=== PATIENT | female | born 1980 | race Caucasian/White ===

== ENCOUNTER 2020-10-12 15:04 | Outpatient (CLI) | payer OTHER, SELFPAY ==
--- NOTE | ~2020-10-12 | MM_ITS ---
EXAMINATION: MM screening kyra BI w tera HISTORY: Screening TECHNIQUE: Craniocaudal and mediolateral oblique 3-D tomosynthesis images were obtained and synthetic 2-D images were generated. CAD analysis was submitted and interpreted. COMPARISON: No prior mammogram is available for comparison at this institution. BREAST PARENCHYMAL COMPOSITION: There are scattered areas of fibroglandular density. FINDINGS: There is no evidence of suspicious mass, calcification, or architectural distortion to sugg est malignancy in either breast. There has been no suspicious interval change. IMPRESSION: 1. No mammographic evidence of malignancy. 2. Recommend routine screening mammography in one year. BI-RADS Category 1: Negative Reviewed, dictated and finalized at location A.
== END 2020-10-12 15:05 | disposition home or self-care (01) ==
LOC: ANHIMG 15:08
PROVIDERS: PCP Family Medicine; Visit Provider Obstetrics & Gynecology
DX: Z12.31 Encounter for screening mammogram for malignant neoplasm of breast (principal)
CPT/HCPCS: 77063; 77067

== ENCOUNTER 2020-10-16 15:32 | Outpatient (CLI) | payer OTHER, SELFPAY | END 2020-10-16 15:33 | disposition home or self-care (01) | LOC: ANHCOVIDVC 15:32 | PROVIDERS: PCP Family Medicine | DX: Z23 Encounter for immunization (principal) | CPT/HCPCS: 0001A; 91300 ==

== ENCOUNTER 2020-11-06 15:44 | Outpatient (CLI) | payer OTHER, SELFPAY | END 2020-11-06 15:45 | disposition home or self-care (01) | LOC: ANHCOVIDVC 15:44 | PROVIDERS: PCP Family Medicine | DX: Z23 Encounter for immunization (principal) | CPT/HCPCS: 0002A; 91300 ==

== ENCOUNTER 2023-06-30 12:01 | Outpatient (CLI) | payer BC, SELFPAY ==
--- NOTE | 2023-06-30 14:54 | ECG_ITS ---
Measurements Intervals [place] Rate: 84 P: 54 ID: 162 QRS: 37 QRSD: 82 T: 52 QT: 337 QTc: 399 Interpretive Statements SINUS RHYTHM NO PREVIOUS ECG AVAILABLE FOR COMPARISON Electronically Signed On 06-30-2023 16:42:54 YARN WRAPPER by Steve Carranza M.D.
== END 2023-06-30 12:02 | disposition home or self-care (01) ==
PROVIDERS: PCP Physician Assistant; Visit Provider Obstetrics & Gynecology
DX: Z01.818 Encounter for other preprocedural examination (principal); E78.00 Pure hypercholesterolemia, unspecified
CPT/HCPCS: 93005

== ENCOUNTER 2023-07-12 01:27 | Day surgery (SDC) | payer BC, SELFPAY ==
[2023-06-28 14:40] VITALS: BMI 24.4
--- NOTE | 2023-06-28 14:58 | PC.NURSE ---
Report to the Outpatient Waiting Room, entrance under the green pavilion located off [facility], at 1000 on 07-12-23. Planned Procedure Time: 1200. Time changes happen often and if your time is changed the preop area will call you the afternoon before. - You and your visitor will be asked to self-screen and do not enter if you have any COVID symptoms. - A mask is optional within the hospital at this time. Patients may have clear liquids (water, carbonated beverages, clear teas, apple juice) until 3 hours prior to surgery with a maximum of 20 ounces. 0900 - No food from midnight until time of surgery - Infants may have breast milk until 4 hours before surgery, infant formula 6 hours prior to surgery. - Children will be allowed to drink immediately following surgery. If applicable, please bring a bottle or sippy cup to assist with drinking. Juice, water, soda, and popsicles are readily available. For infants on formula, please bring formula the day of surgery. Pacifiers are allowed. Take the following medications with a SIP of water the morning of surgery: propanolol DO NOT STOP ANY OF YOUR OTHER PRESCRIPTION MEDICATIONS PRIOR TO SURGERY ?EXCEPT THE FOLLOWING Medications to discontinue per physician: vitamins and supplements Date to take last dose: 07-09-23 Please no make-up, nail israeli, hairspray, perfume, deodorant, or body powder the day of surgery. No jewelry (including any body piercings) or valuables the day of surgery, leave them at home. Please take a shower or bath the night before, or the morning of, surgery with an antibacterial soap. Wear comfortable, loose fitting clothing. Children are encouraged to wear pajamas. - Jewelry must be removed prior to entering the operating room. Rings and piercings that are not removed may be cut off. - The hospital will not accept responsibility for valuables. - Please leave all valuables, including medications, at home the day of surgery. If you are going home after surgery, a licensed trencher driver must drive you home. - NO public transportation without another adult if you receive anesthesia. - We recommend that an adult stay with you for 24 hours following discharge. - We also recommend that you do not drive, make important decision, drink alcoholic beverages, or take any drugs that were not prescribed by your health care provider for at least 24 hours after your discharge time. For Pediatric surgeries, we recommend two adults accompany the child home. Follow any additional instructions given to you from your surgeon. If you or anyone in your household have experienced Covid symptoms in the past week, please notify your surgeon or the nurse liaison at the phone number below for possible testing. Telephone instructions given to Sayda Jordan and asked if any additional questions and then verbalized understanding. Patient advised to call surgeon office or pre surgery nurse liaison [phone] if any additional questions.
[2023-07-12] VITALS (13 sets, daily range): BP systolic 127–142; BP diastolic 76–92; PULSE 57–79; RESP 10–20; TEMP 36.5–37.2; O2SAT 94–100
[2023-07-12] MEDS: ACETAMINOPHEN 500 MG TABLET 1000 MG PO (10:37)
[2023-07-12] MEDS: LACTATED RINGERS 1,000 ML 30 ML IV CONT ×2 (10:55→12:59)
[2023-07-12] MEDS: KETOROLAC 15 MG/ML VIAL (*BKC) IV PUSH (10:57)
--- NOTE | 2023-07-12 11:37 | PM.IMHP ---
H&P: HPI History of Present Illness Date/Time: 07/12/23 11:37 Chief Complaint: Heavy periods Narrative: 42 y/o who has been using an extended cycle combined oral contraceptive. Her menses have become irregular and unpredictable and are heavy, with passage of clots. She does not desire future childbearing. Review of Systems Review of Systems: All systems reviewed & are unremarkable except as noted in HPI and below PMFSH Past Medical History Medical History Hyperlipidemia Social History Social History Smoking packs per day: 0.5 Smoking cigarettes per day: 10.0 Years smoked: 6 Smoking pack-years: 3.00 Smoking status: Former smoker Tobacco type: cigarettes Second hand tobacco smoke exposure: No Smoking end date: 07/03/03 Alcohol intake: current Alcohol use details: sometimes Substance use: never Substance use type: does not use Living arrangements: with family Spiritual care concerns: No Meds Home Medications and Allergies Home Medications Medication Instructions Recorded Confirmed Type L norgest/E estradiol-E estrad See Rx Instructions .Route .COMPLEX 06/28/23 07/12/23 History 0.15 mg-30 mcg (84)/10 mcg(7) tabs,3mos (Ashlyna) atorvastatin 10 mg tablet 10 mg PO HS 06/28/23 07/12/23 History magnesium 250 mg tablet 250 mg PO HS 06/28/23 07/12/23 History multivit with minerals-iron 18 1 tablet PO DAILY 06/28/23 07/12/23 History mg-folic ac 400 mcg-vit K 25 mcg tablet (Adults Multivitamin) propranolol 40 mg tablet 40 mg PO DAILY 06/28/23 07/12/23 History pseudoephedrine HCl 120 mg 120 mg PO DAILY 06/28/23 07/12/23 History tablet,extended release (Sudafed 12 Hour) vitamin B complex (B 1 tablet PO DAILY 06/28/23 07/12/23 History Complex-Vitamin B12 tablet) Allergies Allergy/AdvReac Type Severity Reaction Status Date / Time No Known Allergies Allergy Verified 06/28/23 14:20 Vital Signs Vital Signs - 24 hr 07/12/23 10:35 Temperature 37.2 C Pulse Rate 72 Respiratory Rate 20 Blood Pressure 131/88 Pulse Oximetry 100 Oxygen Delivery Room Air Exam Const: Orientation/consciousness: patient oriented x3 Other: Well-developed, well-nourished female in no acute distress. Neck: Thyroid: thyroid normal Lymphatic: no lymphadenopathy noted (in neck, axilla or inguinal nodes) Resp: Effort & Inspection: normal respiratory effort Auscultation: clear to auscultation bilaterally Cardio: Rate: regular rate Rhythm: regular rhythm Heart sounds: S1 normal heart sound present and S2 normal heart sound present GI: Other: ABD: Soft, nontender, nondistended. No guarding or rebound tenderness. No hepatosplenomegaly. : General: Yes no CVA tenderness Other: External genitalia: normal female hair distribution, without lesion. Urethral meatus: no lesion, non prolapsed. Bladder: no mass, nontender Vagina: well-estrogenized, without lesion or discharge. No cystocele or rectocele. Cervix: no lesion or discharge. Uterus: small, anteverted, freely mobile, nontender Adnexa: no mass or tenderness. Anus/perineum: no lesions, nontender Back/Spine/Pelvis: Back: no CVA tenderness Skin: General skin exam: normal color and no rashes or lesions noted Neuro: General: patient oriented x3 Extrem: Other: Extremities: nontender with no edema Psych: Mental Status: mental status grossly normal Affect: normal affect Assessment and Plan Assessment and plan (1) Menometrorrhagia: Code(s): N92.1 - Excessive and frequent menstruation with irregular cycle Status: Acute Assessment and Plan: A: Menometrorrhagia with desired sterility. P: We have discussed medical as well as surgical treatment options, and she prefers the latter. Specifically, I have offered her a laparoscopic bilateral tubal ligation, hysterosc
--- NOTE | 2023-07-12 11:58 | P.PNAN_ITS ---
Anes - Initial Pre Proc Eval Procedure: Operation Date: 07/12/23 12:00 Proposed Procedures p Laparoscopic Bilateral Tubal with Fallopian Rings - Vicente Lopez MD s Hysteroscopy Dilation and Curettage with Sonali Endometrial Ablation - Vicente Lopez MD Date/Time: 07/12/23 11:58 Surgeon: Vicente Lopez MD Pre Op Diagnosis: Desire Sterilization Excessive Irg Bleeding Patient Data Age: 42 Gender: F Height: 1.83 m Weight: 83.3 kg Last Vital Signs Temp 37.2 C 07/12/23 10:35 Pulse 72 07/12/23 10:35 Resp 20 07/12/23 10:35 BP 131/88 07/12/23 10:35 Pulse Ox 100 07/12/23 10:35 O2 Del Method Room Air 07/12/23 10:35 Allergies Allergy/AdvReac Type Severity Reaction Status Date / Time No Known Allergies Allergy Verified 06/28/23 14:20 Home Medications Medication Instructions Recorded Confirmed Type L norgest/E estradiol-E estrad See Rx Instructions .Route .COMPLEX 06/28/23 07/12/23 History 0.15 mg-30 mcg (84)/10 mcg(7) tabs,3mos (Ashlyna) atorvastatin 10 mg tablet 10 mg PO HS 06/28/23 07/12/23 History magnesium 250 mg tablet 250 mg PO HS 06/28/23 07/12/23 History multivit with minerals-iron 18 1 tablet PO DAILY 06/28/23 07/12/23 History mg-folic ac 400 mcg-vit K 25 mcg tablet (Adults Multivitamin) propranolol 40 mg tablet 40 mg PO DAILY 06/28/23 07/12/23 History pseudoephedrine HCl 120 mg 120 mg PO DAILY 06/28/23 07/12/23 History tablet,extended release (Sudafed 12 Hour) vitamin B complex (B 1 tablet PO DAILY 06/28/23 07/12/23 History Complex-Vitamin B12 tablet) Patient hx anesthesia problems: none Family hx anesthesia problems: none Results Review: All pre-operative results and documents have been reviewed as part of the pre-operative evaluation. PMFSH Past Medical History Medical History Hyperlipidemia Social History Social History Smoking packs per day: 0.5 Smoking cigarettes per day: 10.0 Years smoked: 6 Smoking pack-years: 3.00 Smoking status: Former smoker Tobacco type: cigarettes Second hand tobacco smoke exposure: No Smoking end date: 07/03/03 Alcohol intake: current Alcohol use details: sometimes Substance use: never Substance use type: does not use Living arrangements: with family Spiritual care concerns: No Anes - Eval Final PreProcedure Day of Procedure 07/12/23 11:58 Patient weight: normal Heart: regular rate and rhythm Lungs: clear to auscultation Airway: Mallampati scale class II Neurological: alert and oriented Last oral intake: >/= 8 hours ASA classification: II Emergent: no Anesthetic plan: proceed Anesthesia type and monitoring: general ETT and standard monitoring Results Review: All pre-operative results and documents have been reviewed as part of the pre- operative evaluation. Informed Consent: The patient's anesthetic plan and its attendant risks and benefits were discussed with the patient/family/POA. Questions were solicited and answers provided to the satisfaction of the patient/family/POA.
--- NOTE | 2023-07-12 11:58 | WPDHPUPDATE1 ---
History and Physical Update Update Date/Time: 07/12/23 11:58 History and Physical has been reviewed, including an updated exam of the patient. There are NO changes in the patient's condition. Risks, benefits, and alternatives have been discussed and questions answered. Patient agrees to proceed with procedure.
[2023-07-12] MEDS: LIDOCAINE HCL 1% LOCAL INJ 20 ML VIAL INFILTRATE (12:33)
--- NOTE | 2023-07-12 13:05 | P.OP_ITS ---
Procedure Note - Detailed Date of Procedure 07/12/23 Pre-op Diagnosis Menometrorrhagia Desired sterility Post-op Diagnosis Same Procedure Performed Laparoscopic bilateral tubal ligation with Falope rings Hysteroscopy Dilation and sharp curettage Endometrial ablation Surgeon Vicente Lopez MD Anesthesia General and Local (1% lidocaine) Findings On laparoscopy, normal-appearing uterus, tubes, ovaries, anterior and posterior cul de sac, bilateral round and uterosacral ligaments. RUQ anatomy unremarkable. Vermiform appendix not visible. On hysteroscopy, the endometrial cavity was unremarkable. Both tubal ostia were seen. The uterus sounded to a depth of 8 cm, with a cervical length of 3 cm, giving a subtracted uterine cavity length of 5 cm. Description of Procedure The patient was taken to the operating room where general endotracheal anesthesia was administered. She was prepared and draped in the usual sterile fashion in dorsal lithotomy position. The bladder was drained with a red rubber catheter. A sterile speculum was placed into the vagina. The anterior lip of the cervix was grasped with a single-tooth tenaculum. The acorn uterine manipulator was placed. The speculum was withdrawn. Gloves were changed and attention was turned the abdomen. An infraumbilical skin incision was made with a scalpel. The abdomen was tented and a 5mm bladeless trocar was advanced under direct laparoscopic visualization. Pneumoperitoneum was administered using carbon dioxide gas. A survey of the pelvis and abdomen revealed the findings noted above. A second skin incision was made in the midline above the symphysis pubis and an 8mm bladeless trocar was advanced under direct laparoscopic visualization. The fallopian tube on the left side was followed out to the fimbriated end for identification. It was then grasped in the midportion with the Falope ring applicator. The Falope ring was tented applied. A good loop of tube was noted to be distal to the ring. Hemostasis was excellent. The device was reloaded and the contralateral tube was similarly identified and ligated. An excellent application was noted here as well. A total of 4mL of 1% lidocaine was infiltrated into the serosa of the proximal tubes for postoperative anesth esia. The ports were withdrawn. The gas was allowed to escape. The skin incisions were reapproximated using interrupted subcuticular sutures of 4 0 Vicryl. Dermaflex was applied externally. Attention was redirected to the vagina, where the acorn uterine manipulator was withdrawn and the speculum reintroduced. Ten mL of 1% lidocaine was administered in a paracervical block. The cervix was then gently dilated using Hegar dilators until an 8 mm dilator could be passed. Hysteroscopy was performed using sterile saline as a distention medium. Findings are as noted above. Sharp curettage was then performed, and endometrial curettings were collected on a Telfa pad and passed off to be sent to pathology. Finally, the the Sonali device was advanced and endometrial ablation commenced without difficulty. The device was withdrawn and a second look was taken using the hysteroscope. Excellent coverage of the endometrial cavity was noted. The tenaculum was removed. Hemostasis was excel lent. Sponge, lap, needle and instrument counts were correct. The patient was awakened and taken to the recovery room in stable condition. I was present and scrubbed through the entire procedure. Implants Falope rings x 2 Estimated Blood Loss 10 Drains No Packing No Pathology Yes (Endometrial curettings) Complications None Condition Stable Disposition PACU
[2023-07-12] MEDS: fentaNYL CITRATE INJ (*CRX) 100 MCG/2 ML VIAL 25 MCG IV PUSH ×8 (13:11→13:44)
--- NOTE | 2023-07-12 13:26 | SUR.PHASEI ---
1325: Simple mask removed.
[2023-07-12] MEDS: HYDROmorphone HCL INJ (*CRX) 1 MG/ML SYR IV PUSH ×2 (15:28→16:00)
[2023-07-12] MEDS: diazePAM INJ (*CRX) 10 MG/2 ML SYRINGE 2.5 MG IV PUSH (15:28)
== END 2023-07-12 16:40 | disposition home or self-care (01) ==
PROVIDERS: PCP Physician Assistant; Visit Provider Obstetrics & Gynecology
PROC: (CPT 58671; principal; 2023-07-12 12:00)
PROC: 0U5B8ZZ Destruction of Endometrium, Via Natural or Artificial Opening Endoscopic (ICD-10-PCS; CPT 58563; 2023-07-12 12:00)
DX: N92.1 Excessive and frequent menstruation with irregular cycle (principal); Z30.2 Encounter for sterilization; E78.5 Hyperlipidemia, unspecified; Z87.891 Personal history of nicotine dependence
CPT/HCPCS: 58563; 58671; 88305; A4264; A9270; J0330; J1100; J1170; J1885; J2250; J2405; J2704; J3010; J3360; J7120

== ENCOUNTER 2023-10-02 07:32 | Outpatient (CLI) | payer OTHER, SELFPAY ==
--- NOTE | ~2023-10-02 | MM_ITS ---
EXAMINATION: MM screening kyra BI w tera HISTORY: Screening TECHNIQUE: Craniocaudal and mediolateral oblique 3-D tomosynthesis images were obtained and synthetic 2-D images were generated. CAD analysis was submitted and interpreted. COMPARISON: 10/12/2020 BREAST PARENCHYMAL COMPOSITION: Not dense: There are scattered areas of fibroglandular density. FINDINGS: There are new asymmetries centered in the upper outer quadrant of the right breast. The lef t breast is stable without evidence for malignancy. IMPRESSION: 1. New right breast asymmetries. 2. Additional mammographic views and possible breast ultrasound are recommended. BI-RADS Category 0: Incomplete: Needs additional imaging evaluation. Reviewed, dictated and finalized at location B. IMPRESSION: 1. New right breast asymmetries. 2. Additional mammographic views and possible breast ultrasound are recommended . BI-RADS Category 0: Incomplete: Needs additional imaging evaluation.
== END 2023-10-02 07:33 | disposition home or self-care (01) ==
LOC: ANHIMG 07:35
PROVIDERS: PCP Physician Assistant; Visit Provider Obstetrics & Gynecology
DX: Z12.31 Encounter for screening mammogram for malignant neoplasm of breast (principal); R92.8 Other abnormal and inconclusive findings on diagnostic imaging of breast
CPT/HCPCS: 77063; 77067

== ENCOUNTER 2023-11-09 10:47 | Outpatient (CLI) | payer OTHER, SELFPAY ==
--- NOTE | ~2023-11-09 | MMUS_ITS ---
EXAMINATION: MM diagnostic kyra RT w tera, US breast RT limited HISTORY: New right breast mammographic asymmetry is reported on in the upper outer quadrant right nahun ast on October 02, 2023 screening mammogram TECHNIQUE: Additional 3-D tomosynthesis images of the right breast were performed and synthetic 2-D i mages were generated. CAD analysis was submitted and interpreted. High resolution upper outer quadran t right breast ultrasound was performed. COMPARISON: October 02, 2023 bilateral screening mammogram FINDINGS: MAMMOGRAPHIC FINDINGS: No suspicious mass or architectural distortion, malignant calcification, skin thickening or retractio n or significant new or developing density is detected. ULTRASOUND: Well-circumscribed oval 2.2 x 4.6 x 4.7 mm benign-appearing relatively sonolucent lesion without inte rnal vascularity or posterior shadowing. No suspicious mass lesion or suspicious shadowing is detected. IMPRESSION: 1. No mammographic or sonographic evidence of malignancy 2. Routine annual mammographic screening is recommended BI-RADS Category 2: Benign finding(s). Reviewed, dictated and finalized at location B. IMPRESSION: 1. No mammographic or sonographic evidence of malignancy 2. Routine annual mammographic screening is recommended BI-RADS Category 2: Benign finding(s).
== END 2023-11-09 10:48 | disposition home or self-care (01) ==
PROVIDERS: PCP Physician Assistant; Visit Provider Obstetrics & Gynecology
DX: R92.8 Other abnormal and inconclusive findings on diagnostic imaging of breast (principal)
CPT/HCPCS: 76642; 77061; 77065; G0279

== ENCOUNTER 2025-02-21 08:16 | Outpatient (CLI) | payer OTHER, SELFPAY ==
--- NOTE | ~2025-02-21 | MM_ITS ---
EXAMINATION: MM screening kyra BI w tera HISTORY: Screening mammogram, family history of breast cancer in her mother. TECHNIQUE: Craniocaudal and mediolateral oblique 3-D tomosynthesis images were obtained and synthetic 2-D images were generated. CAD analysis was submitted and interpreted. COMPARISON: 10/02/2023, 10/12/2020 BREAST PARENCHYMAL COMPOSITION:Not Dense. There are scattered areas of fibroglandular density. FINDINGS: No suspicious mass, calcification, or architectural distortion are identified in either breast to suggest malignancy. There has been no suspicious interval change. IMPRESSION: No mammographic evidence of malignancy. Recommend routine screening mammography in one year. BI-RADS Category 1: Negative Reviewed, dictated and finalized at location .
--- OUTSIDE RECORDS SUMMARY | 2025-02-21 08:20 | XMS_ITS | Encounter Summary ---
Author Organization [facility] Address [address] [place] [address] Care Team Providers Care Patient Assessment Coordinator Name Role Phone Yari Pedraza PA-C Primary Care Provider +1- [phone] Encounter Details Date Type Department Care Team (Late st Contact Info) Description 01/02/2025 Results Follow-Up [address] [address] Yair Pedraza PA-C [address] [place] [address] THYROID STIM HORMONE TSH, THYROXINE, FREE (FT4), CBC W/DIFF AUTOMATED, Additional followed-up results: 4 Social History Tobacco Use Types Packs/Day Years Used Date Smoking Tobacco: Former Passive Smoke Exposure: Never Smokeless Tobacco: Never Comments:quit about 17 years ago Alcohol Use Standard Drinks/Week Comments Yes 2.7 (1 standard drink = 0.6 oz p ure alcohol) social PHQ-2 Answer Date Recorded Patient Health Questionnaire-2 Score 0 09/12/2024 Comments No Sex and Gender Information Value Date Recorded Sex Assigned at Female 12/02/2024 7:57 AM CDT Legal Sex Female 7:37 PM CDT Gender Identity Not on file Sexual Orientation Not on file documented as of this encounter Plan of Treatment Upcoming Encounters Date Type Department Care Team (Late st Contact Info) Description 06/17/2025 3:00 PM ROUGH ROUNDER MACHINE Office Visit [address] [address] Yari Pedraza PA-C [address] [place] [address] 07/09/2025 8:20 AM ROUGH ROUNDER MACHINE Office Visit [facility] Medical [facility] Multispecialty Care - [facility] [address] [facility] [place] [address] Caio Harris MD [facility] [facility] [address] [place] [address] documented as of this encounter Visit Diagnoses Not on filedocumented in this encounter Additional Health Concerns Assessment Noted Time PHQ-9 Depression Total Score: 0 05/13/20 24 2:15 PM ROUGH ROUNDER MACHINE documented as of this encounter Care Teams Patient Assessment Coordinator Relationship Specialty Start Date End Date Yari Pedraza PA-C [address] [place] [address] PCP - General PHYSICIAN PIPELINE DISPATCH OPERATOR 03/03/21 documented as of this encounter
--- OUTSIDE RECORDS SUMMARY | 2025-02-21 08:20 | XMS_ITS | Encounter Summary ---
Author Organization [facility] Address [address] [place] [address] Care Team Providers Care Switcher Name Role Phone Yari Pedraza PA-C Primary Care Provider +1- [phone] Encounter Details Date Type Department Care Team (Late st Contact Info) Description 05/01/2023 MyChart Message Enc [address] [address] Yari Pedraza PA-C [address] [place] [address] sick/COVID Social History Tobacco Use Types Packs/Day Years Used Date Smoking Tobacco: Former Smokeless Tobacco: Never Comments:quit about 17 years ago Alcohol Use Standard Drinks/Week Comments Yes 0 (1 standard drink = 0.6 oz pur e alcohol) social PHQ-2 Answer Date Recorded Patient Health Questionnaire-2 Score 0 06/22/2022 Comments No Sex and Gender Information Value Date Recorded Sex Assigned at Female 12/02/2024 7:57 AM CDT Legal Sex Female 7:37 PM CDT Gender Identity Not on file Sexual Orientation Not on file documented as of this encounter Plan of Treatment Upcoming Encounters Date Type Department Care Team (Late st Contact Info) Description 06/17/2025 3:00 PM OPERATIONS PLANNER Office Visit [address] [address] Yari Pedraza PA-C [address] [place] [address] 07/09/2025 8:20 AM OPERATIONS PLANNER Office Visit [facility] Multispecialty Care - [facility] [address] [facility] [place] [address] Caio Harris MD 3rd [facility] [address] [place] [address] documented as of this encounter Visit Diagnoses Not on filedocumented in this encounter Additional Health Concerns Assessment Noted Time PHQ-9 Depression Total Score: 0 03/03/20 11:44 AM CDT documented as of this encounter Care Teams Switcher Relationship Specialty Start Date End Date Yari Pedraza PA-C [address] [place] [address] PCP - General PHYSICIAN SUPERVISOR ELECTRONIC TESTING 03/03/21 documented as of this encounter
--- OUTSIDE RECORDS SUMMARY | 2025-02-21 08:20 | XMS_ITS | Encounter Summary ---
Author Organization [facility] Address Formerly [facility] [place] [address] Care Team Providers Care Railroad Car Painter Name Role Phone Yari Pedraza PA-C Primary Care Provider +1- [phone] Encounter Details Date Type Department Care Team (Late st Contact Info) Description 06/19/2024 Jybet Message Enc [facility] Family Medicine - [place] [address] Yari Pedraza PA-C [address] [place] [address] MRI of right shoulder Social History Tobacco Use Types Packs/Day Years Used Date Smoking Tobacco: Former Smokeless Tobacco: Never Comments:quit about 17 years ago Alcohol Use Standard Drinks/Week Comments Yes 2.7 (1 standard drink = 0.6 oz p ure alcohol) social PHQ-2 Answer Date Recorded Patient Health Questionnaire-2 Score 0 05/13/2024 Comments No Sex and Gender Information Value Date Recorded Sex Assigned at Female 12/02/2024 7:57 AM CDT Legal Sex Female 7:37 PM CDT Gender Identity Not on file Sexual Orientation Not on file documented as of this encounter Progress Notes * Mary Estrada MA - 06/20/2024 9:35 AM CST Patient is aware that the Xray order was placed. IFIED MAINTENANCE WELDER * Yari Pedraza PA-C - 06/19/2024 8:53 PM CST I ordered xray IFIED MAINTENANCE WELDER documented in this encounter Plan of Treatment Upcoming Encounters Date Type Department Care Team (Late st Contact Info) Description 06/17/2025 3:00 PM CERTIFIED MAINTENANCE WELDER Office Visit [facility] Family Medicine - [address] [phone] Yari Pedraza PA-C [address] [place] [address] 07/09/2025 8:20 AM CERTIFIED MAINTENANCE WELDER Office Visit [facility] Multispecialty Care - [facility] [address] [facility] [place] [address] Caio Harris MD [address] [place], [place] [address] [place] [address] documented as of this encounter Visit Diagnoses Not on filedocumented in this encounter Additional Health Concerns Assessment Noted Time PHQ-9 Depression Total Score: 0 05/13/20 24 2:15 PM CERTIFIED MAINTENANCE WELDER documented as of this encounter Care Teams Railroad Car Painter Relationship Specialty Start Date End Date Yari Pedraza PA-C [address] [place] [address] PCP - General PHYSICIAN STEAM PLANT OPERATOR 03/03/21 documented as of this encounter
--- OUTSIDE RECORDS SUMMARY | 2025-02-21 08:20 | XMS_ITS | Encounter Summary ---
Author Organization [facility] Address [facility] [place] [address] Care Team Providers Care Security Chief Museum Name Role Phone Yari Pedraza PA-C Primary Care Provider +1- [phone] Encounter Details Date Type Department Care Team (Late st Contact Info) Description 06/25/2024 [employer] Message Enc [facility] Medical Group Family Medicine - [place] [address] Yari Pedraza PA-C [address] [place] [address] results Social History Tobacco Use Types Packs/Day Years [...] as of this encounter Progress Notes * Yari Pedraza PA-C - 06/25/2024 12:29 PM CST Referral for ortho sent NOLOGY RESOURCE TEACHER * Roseann Pang MA - 06/25/2024 11:01 AM CST Patient does want to proceed with MRI and ortho referral please NOLOGY RESOURCE TEACHER documented in this encounter Plan of Treatment Upcoming Encounters Date Type Department Care Team (Late st Contact Info) Description 06/17/2025 3:00 PM TECHNOLOGY RESOURCE TEACHER Office Visit [facility] Family Medicine - [place] [address] [place] [address] Yari Pedraza PA-C [address] [place] [address] 07/09/2025 8:20 AM TECHNOLOGY RESOURCE TEACHER Office Visit [facility] Multispecialty Care - [facility] 3 [facility] [place] [address] Caio Harris MD [address] [facility] [address] [place] [address] documented as of this encounter Visit Diagnoses Not on filedocumented in this encounter Additional Health Concerns Assessment Noted Time PHQ-9 Depression Total Score: 0 05/13/20 24 2:15 PM TECHNOLOGY RESOURCE TEACHER documented as of this encounter Care Teams Security Chief Museum Relationship Specialty Start Date End Date Yari Pedraza PA-C [address] [place] [address] PCP - General PHYSICIAN FISHING ACCESSORIES MAKER 03/03/21 documented as of this encounter
--- OUTSIDE RECORDS SUMMARY | 2025-02-21 08:20 | XMS_ITS | Encounter Summary ---
Author Organization [facility] Address [facility] [place] [address] Care Team Providers Care Manager Sports Name Role Phone Yari Pedraza PA-C Primary Care Provider +1- [phone] Encounter Details Date Type Department Care Team (Late Contact Info) Description 07/29/2021 [employer]CSimple Start Message Enc [facility] Medical Group Family Medicine [place] [address] Yari Pedraza PA-C [address] [place] [address] Work note Social History Tobacco Use Types Packs/Day Years Used Date Smoking Tobacco: Former Smokeless Tobacco: Never Comments:quit Alcohol Use Standard Drinks/Week Comments Yes 0 (1 standard drink = 0.6 oz pur e alcohol) social PHQ-2 Answer Date Recorded PHQ-2 Score - If the patient scores above 3, please move on to questions 3-9 0 03/03/2021 Comments No Sex and Gender Information Value Date Recorded Sex Assigned at Female 12/02/2024 7:57 AM CDT Legal Sex Female 7:37 PM CDT Gender Identity Not on file Sexual Orientation Not on file COVID-19 Exposure Response Date Recorded In the last month, have you been in contact with someone who was confirmed or suspected to have Coronavirus / COVID-19? Yes 07/26/2021 4:55 PM WEB APPLICATIONS PROGRAMMER documented as of this encounter Plan of Treatment Upcoming Encounters Date Type Department Care Team (Late Contact Info) Description 06/17/2025 3:00 PM WEB APPLICATIONS PROGRAMMER Office Visit [facility] Family Medicine - [place] [address] [place] [address] Yari Pedraza PA-C [address] [place] [address] 07/09/2025 8:20 AM WEB APPLICATIONS PROGRAMMER Office Visit [facility] Multispecialty Care - [facility] 3 [facility] [place] [address] Caio Harris MD [address] [place] [address] [address] [place] [address] documented as of this encounter Visit Diagnoses Not on filedocumented in this encounter Additional Health Concerns Assessment Noted Time PHQ-9 Depression Total Score: 0 03/03/20 21 11:44 AM CDT documented as of this encounter Care Teams Manager Sports Relationship Specialty Start Date End Date Yari Pedraza PA-C [address] [place] [address] PCP - General PHYSICIAN PORTABLE CANTEEN OPERATOR 03/03/21 documented as of this encounter
--- OUTSIDE RECORDS SUMMARY | 2025-02-21 08:20 | XMS_ITS | Encounter Summary ---
Author Organization [facility] Address [address] [place] [address] Care Team Providers Care Ehr Trainer Name Role Phone Yari Pedraza PA-C Primary Care Provider +1- [phone] Encounter Details Date Type Department Care Team (Late st Contact Info) Description 03/16/2023 MyChart Message Enc [address] [address] Yari Pedraza PA-C [address] [place] [address] results Social History Tobacco Use Types [...] st Contact Info) Description 06/17/2025 3:00 PM OUTREACH AND EDUCATION SOCIAL WORKER Office Visit [address] [address] Yari Pedraza PA-C [address] [place] [address], [place] [address] 07/09/2025 8:20 AM OUTREACH AND EDUCATION SOCIAL WORKER Office Visit [facility] Medical Group Multispecialty Care - [facility] 3 [facility] [address] [place] [address] Caio Harris MD [address] [place] [address] [address] [place] [address] documented as of this encounter Visit Diagnoses Not on filedocumented in this encounter Additional Health Concerns Assessment Noted Time PHQ-9 Depression Total Score: 0 03/03/20 11:44 AM CDT documented as of this encounter Care Teams Ehr Trainer Relationship Specialty Start Date End Date Yari Pedraza PA-C [address] [place] [address] PCP - General PHYSICIAN TRIM STENCIL MAKER 03/03/21 documented as of this encounter
--- OUTSIDE RECORDS SUMMARY | 2025-02-21 08:20 | XMS_ITS | Encounter Summary ---
Author Organization [facility] Address [facility] [place] [address] Care Team Providers Care Bulb Farmworker Name Role Phone Yari Pedraza PA-C Primary Care Provider +1- [phone] Encounter Details Date Type Department Care Team (Late st Contact Info) Description 07/04/2022 Brickstreamt Message Enc [facility] Medical Group Family Medicine - [place] [address] Yari Pedraza PA-C [address] [place] [address] results Social History Tobacco Use Types [...] Exposure Response Date Recorded In the last 10 days, have yo u been in contact with someone who was confirmed or suspected to have Coronavirus/COVID-19? No / Unsure 07/01/2022 11:08 AM BAKED AND GRAPHITE INSPECTOR documented as of this encounter Progress Notes * Roseann Pang MA - 07/05/2022 1:25 PM CST Patient response (see prev) D AND GRAPHITE INSPECTOR documented in this encounter Plan of Treatment Upcoming Encounters Date Type Department Care Team (Late st Contact Info) Description 06/17/2025 3:00 PM BAKED AND GRAPHITE INSPECTOR Office Visit [facility] Family Medicine - [place] [address] [place] [address] Yari Pedraza PA-C [address] [place] [address] 07/09/2025 8:20 AM BAKED AND GRAPHITE INSPECTOR Office Visit [facility] Multispecialty Care - [facility] 3 [facility], [address] [place] [address] Caio Harris MD [address] [place] [address] [address] [place] [address] documented as of this encounter Visit Diagnoses Not on filedocumented in this encounter Additional Health Concerns Assessment Noted Time PHQ-9 Depression Total Score: 0 03/03/20 11:44 AM CDT documented as of this encounter Care Teams Bulb Farmworker Relationship Specialty Start Date End Date Yari Pedraza PA-C [address] [place] [address] PCP - General PHYSICIAN RN BIRTHING 03/03/21 documented as of this encounter
--- OUTSIDE RECORDS SUMMARY | 2025-02-21 08:20 | XMS_ITS | Encounter Summary ---
Author Organization [facility] Address [address] [place] [address] Care Team Providers Care Divisional Merchandising Manager Name Role Phone Yari Pedraza PA-C Primary Care Provider +1- [phone] Encounter Details Date Type Department Care Team (Late st Contact Info) Description 07/01/2024 MyChart Message Enc [address] [address] Yari Pedraza PA-C [address] [place] [address] results Social History Tobacco Use Types [...] st Contact Info) Description 06/17/2025 3:00 PM ASSISTANT MANAGER/EMBALMER Office Visit [address] [address] Yari Pedraza PA-C [address] [place] [address] 07/09/2025 8:20 AM ASSISTANT MANAGER/EMBALMER Office Visit [facility] Medical Group Multispecialty Care - [facility] 3 [facility] [place] [address] Caio Harris MD [address] [place] [address] [address] [place] [address] documented as of this encounter Visit Diagnoses Not on filedocumented in this encounter Additional Health Concerns Assessment Noted Time PHQ-9 Depression Total Score: 0 05/13/20 24 2:15 PM ASSISTANT MANAGER/EMBALMER documented as of this encounter Care Teams Divisional Merchandising Manager Relationship Specialty Start Date End Date Yari Pedraza PA-C [address] [place] [address] PCP - General PHYSICIAN FORECAST ANALYST 03/03/21 documented as of this encounter
--- OUTSIDE RECORDS SUMMARY | 2025-02-21 08:20 | XMS_ITS | Encounter Summary ---
Author Organization [facility] Address [facility]6 [place] [address] Care Team Providers Care Centerless Grinder Tender Name Role Phone Yari Pedraza PA-C Primary Care Provider +1- [phone] Encounter Details Date Type Department Care Team (Late st Contact Info) Description 04/18/2024 [employer] Message Enc [facility] Medical Group Family Medicine - [place] [address] Yari Pedraza PA-C [address] [place] [address] results Social History Tobacco Use Types Packs/Day Years Used Date Smoking Tobacco: Former Smokeless Tobacco: Never Comments:quit about 17 years ago Alcohol Use Standard Drinks/Week Comments Yes 2.7 (1 standard drink = 0.6 oz p ure alcohol) social PHQ-2 Answer Date Recorded Patient Health Questionnaire-2 Score 0 02/21/2024 Comments No Sex and Gender Information Value Date Recorded Sex Assigned at Female 12/02/2024 7:57 AM CDT Legal Sex Female 7:37 PM CDT Gender Identity Not on file Sexual Orientation Not on file documented as of this encounter Progress Notes * Yari Pedraza PA-C - 04/18/2024 4:27 PM CDT Referral placed * Roseann Pang MA - 04/18/2024 4:18 PM CDT Will you refer for PT as requested? documented in this encounter Plan of Treatment Upcoming Encounters Date Type Department Care Team (Late st Contact Info) Description 06/17/2025 3:00 PM CARBON CAPTURE POWER PLANT MANAGER Office Visit [facility] Family Medicine - [place] [address] [place] [address] Yari Pedraza PA-C [address] [place] [address] 07/09/2025 8:20 AM CARBON CAPTURE POWER PLANT MANAGER Office Visit [facility] Multispecialty Care - [facility] 3 [facility] [place] [address] Caio Harris MD [address] [facility] [address] [place] [address] documented as of this encounter Visit Diagnoses Not on filedocumented in this encounter Additional Health Concerns Assessment Noted Time PHQ-9 Depression Total Score: 0 03/03/20 21 11:44 AM CDT documented as of this encounter Care Teams Centerless Grinder Tender Relationship Specialty Start Date End Date Yari Pedraza PA-C [address] [place] [address] PCP - General PHYSICIAN DIRECTOR OF INSTRUCTION 03/03/21 documented as of this encounter
--- OUTSIDE RECORDS SUMMARY | 2025-02-21 08:20 | XMS_ITS | Encounter Summary ---
Author Organization [facility] Address [facility]6 [place] [address] Care Team Providers Care Mechanical Systems Engineer Name Role Phone Yari Pedraza PA-C Primary Care Provider +1- [phone] Encounter Details Date Type Department Care Team (Late st Contact Info) Description 12/14/2021 MyCSyntensiat Message Enc [facility] Medical Group Family Medicine - [place] [address] Yari Pedraza PA-C [address] [place] [address] Hand injury Social History Tobacco Use Types Packs/Day Years Used Date Smoking Tobacco: Former Smokeless Tobacco: Never Comments:quit about 17 years ago Alcohol Use Standard Drinks/Week Comments Yes 0 (1 standard drink = 0.6 oz pur e alcohol) social PHQ-2 Answer Date Recorded PHQ-2 Score - If the patient scores above 3, please move on to questions 3-9 0 12/08/2021 Comments No Sex and Gender Information Value Date Recorded Sex Assigned at Female 12/02/2024 7:57 AM CDT Legal Sex Female 7:37 PM CDT Gender Identity Not on file Sexual Orientation Not on file COVID-19 Exposure Response Date Recorded In the last 10 days, have yo u been in contact with someone who was confirmed or suspected to have Coronavirus/COVID-19? No / Unsure 12/09/2021 1:51 PM CDT documented as of this encounter Progress Notes * Roseann Pang MA - 12/14/2021 5:00 PM CDT Spoke with patient and advised she make an apt or go to the ER Patient had an apt already with another doctor tomorrow so she said she will just keep an eye on her hand and see how it does for now * Roseann Pang MA - 12/14/2021 2:46 PM CDT Please advise or reply to patient documented in this encounter Plan of Treatment Upcoming Encounters Date Type Department Care Team (Late st Contact Info) Description 06/17/2025 3:00 PM DIRECTOR MEDICAL SAFETY Office Visit [facility] Family Medicine - [address] [address] Yari Pedraza PA-C [address] [place] [address] 07/09/2025 8:20 AM DIRECTOR MEDICAL SAFETY Office Visit [facility] Multispecialty Care - [address], [address] [place] [address] Caio Harris MD [address] [place] [address] [place] [address] documented as of this encounter Visit Diagnoses Not on filedocumented in this encounter Additional Health Concerns Assessment Noted Time PHQ-9 Depression Total Score: 0 03/03/20 21 11:44 AM CDT documented as of this encounter Care Teams Mechanical Systems Engineer Relationship Specialty Start Date End Date Yari Pedraza PA-C [address] [place] [address] PCP - General PHYSICIAN GIS GEOGRAPHER 03/03/21 documented as of this encounter
--- OUTSIDE RECORDS SUMMARY | 2025-02-21 08:20 | XMS_ITS | Encounter Summary ---
Author Organization [facility] Address [address] [place] [address] Care Team Providers Care Qc Analyst Name Role Phone Yari Pedraza PA-C Primary Care Provider +1- [phone] Encounter Details Date Type Department Care Team ([facility] Contact Info) Description 12/16/2021 Qbix Message Enc [address] [address] [facility] Provider Result Social History Tobacco Use Types Packs/Day Years [...] PM CDT documented as of this encounter Plan of Treatment Upcoming Encounters Date Type Department Care Team ([facility] Contact Info) Description 06/17/2025 3:00 PM COGENERATION OPERATOR Office Visit [address] [address] Yari Pedraza PA-C 100 [place] [address] 07/09/2025 8:20 AM COGENERATION OPERATOR Office Visit [facility] Medical Group Multispecialty Care - [facility] 3 [facility] [address] [place] [address] Caio Harris MD [address] [facility] [address] [place] [address] documented as of this encounter Visit Diagnoses Not on filedocumented in this encounter Additional Health Concerns Assessment Noted Time PHQ-9 Depression Total Score: 0 03/03/20 11:44 AM CDT documented as of this encounter Care Teams Qc Analyst Relationship Specialty Start Date End Date Yari Pedraza PA-C 100 [place] [address] PCP - General PHYSICIAN DEPARTMENTAL SECRETARY 03/03/21 documented as of this encounter
--- OUTSIDE RECORDS SUMMARY | 2025-02-21 08:20 | XMS_ITS | Encounter Summary ---
Author Organization [facility] Address [facility] [place] [address] Care Team Providers Care Mass Spectrometry Manager Name Role Phone Yari Pedraza PA-C Primary Care Provider +1- [phone] Encounter Details Date Type Department Care Team (Late Contact Info) Description 07/26/2021 MyChart Message Enc [facility] Medical Group Family Medicine - [place] [address] Yari Pedraza PA-C [address] [place] [address] Cough Social History Tobacco Use Types Packs/Day Years [...] Coronavirus / COVID-19? Yes 07/26/2021 4:55 PM NUTRITION MANAGER documented as of this encounter Plan of Treatment Upcoming Encounters Date Type Department Care Team (Late Contact Info) Description 06/17/2025 3:00 PM NUTRITION MANAGER Office Visit [facility] Family Medicine - [place] 100 [place] [address] Yari Pedraza PA-C [address] [place] [address] 07/09/2025 8:20 AM NUTRITION MANAGER Office Visit [facility]pecialty Care - [facility] 3 [facility] [place] [address] Caio Harris MD [address] [place] [address] [address] [place] [address] documented as of this encounter Visit Diagnoses Not on filedocumented in this encounter Additional Health Concerns Assessment Noted Time PHQ-9 Depression Total Score: 0 03/03/20 21 11:44 AM CDT documented as of this encounter Care Teams Mass Spectrometry Manager Relationship Specialty Start Date End Date Yari Pedraza PA-C [address] [place] [address] PCP - General PHYSICIAN CLEANER AND DYER 03/03/21 documented as of this encounter
--- OUTSIDE RECORDS SUMMARY | 2025-02-21 08:20 | XMS_ITS | Clinical Summary ---
Author Organization [facility] Address [address] [place] [address] Care Team Providers Care Roll Forming Supervisor Name Role Phone Yari Pedraza PA-C Primary Care Provider +1- [phone] Allergies No known active allergies Medications fluticasone propionate 50 MCG/ACT nasal spray 1 spray by Nasal route daily. 01/03/20 13 Active loratadine 10 MG tablet 05/27/20 15 Active vitamin D3, cholecalciferol, 1000 UNIT Tab tablet Take 1 tablet (25 mcg total) by mouth daily. Active triamcinolone (KENALOG) 0.1 % creamIndications:I nsect bite, unspecified site, initial encounter Apply topically 2 (two) times daily. 45 g 02/21/20 24 Active Additional Information Patient not taking.Reported on 12/11/2024 Na sulfate-K sulfate-Mg sulfate (SUPREP BOWEL PREP KIT) 17.5-3.13-1.6 GM/177ML SolutionIndication s:Screening for colon cancer Take 177 mLs by mouth every 12 (twelve) hours. Per GI instructions 354 mL 05/13/20 24 Active traZODone (DESYREL) 50 MG tabletIndications: Primary insomnia TAKE 1 TABLET BY MOUTH NIGHTLY AT BEDTIME 90 tablet 1 09/04/19 25 Active atorvastatin (LIPITOR) 10 MG tabletIndications: Mixed hyperlipidemia TAKE 1 TABLET BY MOUTH NIGHTLY AT BEDTIME 90 tablet 1 12/11/19 25 Active propranolol (INDERAL) 40 MG tabletIndications: Primary hypertension Take 1 tablet by mouth twice daily 180 tablet 12/18/19 25 Active Active Problems Problem Noted Date Diagnosed Date Fatigue, unspecified type 12/11/2024 Chronic right shoulder pain 06/05/2024 Chronic neck pain 06/05/2024 Chronic maxillary sinusitis 08/23/2023 Primary insomnia 08/23/2023 Vitamin D deficiency, unspecified 04/21/2021 Pure hypertriglyceridemia 04/21/2021 Migraine with aura and witho ut status migrainosus, not intractable 03/03/2021 Medial epicondylitis of elbow, right 03/03/2021 Chronic pain of right knee 03/03/2021 Allergic rhinitis 01/02/2013 Resolved Problems Problem Noted Date Diagnosed Date Resolved Date Screening for colon cancer 05/13/2024 1 07/20/2023 Screening for colon cancer 05/13/2024 0 11/18/2024 Chronic rhinitis 03/16/2020 03/03/2021 Cellulitis of left anterior lower leg 07/22/2015 03/03/2021 Iliotibial band syndrome 11/15/201307/2020 Trochanteric bursitis 11/15/20132020 Dyshidrosis 11/08/2013 03/03/2021 Encounters Date Type Department Care Team Description 01/02/2025 Results Follow-Up [address] [address] Yari Pedraza PA-C THYROID STIM HORMONE TSH, THYROXINE, FREE (FT4), CBC W/DIFF AUTOMATED, Additional followed-up results: 4 12/11/2024 2:40 PM CDT Office Visit [address] [address] Yari Pedraza PA-C Follow Up (Follow up) 12/11/2024 Travel 12/02/2024 9:31 AM CDT Anesthesia Event [facility] [place] [address] Declan Faye DO 12/02/2024 9:00 AM CDT - 12/02/2024 9:30 AM CDT Surgery [facility] [place] [address] Anil Rizo MD COLONOSCOPY 12/02/2024 7:58 AM CDT - 12/02/2024 10:42 AM CDT Hospital Encounter [facility] [address] Anil Rizo MD Discharge Disposition: Home or Self Care (Routine Discharge) 12/02/2024 Travel 11/26/2024 Travel from Last 3 Months Immunizations Immunization Administration Dates Next Due Fluzone 6 Months+ Quad (0.5 mL Prefilled Syringe ) 04/21/2021 Family History Medical History Relation Comments Diabetes Father Cancer Maternal Grandfather Cancer Maternal Grandmother Breast Cancer Mother Cancer Mother Relation Status Comments Father Alive Maternal Grandfather Maternal Grandmother Alive Mother Alive Social History Tobacco Use Types Packs/Day Years Used Date Smoking Tobacco: Former Passive Smoke Exposure: Never Smokeless Tobacco: Never Tobacco Cessation:Counseling Given: No Comments:quit about 17 years ago Alcohol Use [...] on file Sexual Orientation Not on file Last Filed Vital Signs Vital Sign Reading Time Taken Comments Blood Pressure 106/68 12/11/2024 2:39 PM CDT Pulse 60 12/11/2024 2:39 PM CDT Temperature 36.2 C (97.1 F) 12/11/2024 2:39 PM CDT Respiratory Rate 18 12/11/2024 2:39 PM CDT Oxygen Saturation 98% 12/11/2024 2:39 PM CDT Inhaled Oxygen Concentration - - Weight 87 kg (191 lb 12.8 oz) 12/11/2024 2:39 PM CDT Height 182.9 cm (6') 12/11/2024 2:39 PM CDT Body Mass Index 26.01 12/11/2024 2:39 PM CDT Plan of Treatment Upcoming Encounters Date Type Department Care Team (Late st Contact Info) Description 06/17/2025 3:00 PM MEDIA CONSULTANT OUTSIDE SALES Office Visit [facility] - [place] [address] [place] [phone] Yari Pedraza PA-C [address] [place] [address] 07/09/2025 8:20 AM MEDIA CONSULTANT OUTSIDE SALES Office Visit [facility]ispecialty Care - [facility] [address] [facility] [place] [phone] Caio Harris MD [address] [place] [address] Health Maintenance Due Date Last Done Comments Cervical Cancer Screening Pa p Smear (Age 30 to 64) Every 3 Years 1978 Annual Physical 1981 Hepatitis C 1996 DTaP, Tdap and Td Vaccines ( 1 - Tdap) 1997 Hepatitis B Vaccines (1 of 3 - 19+ 3-dose series) 1997 Cervical Cancer Screening Pa p with HPV Testing (Age 30 to 64) Every 5 Years 2008 Cervical Cancer Screening wi HPV 2008 COVID-19 Vaccine (2023-2 5 season) 2024 12/31/2021, 11/06/2020, 10/16/2020 Mammogram Screening 11/08/2025 11/09/2023, 10/12/2020 Colorectal Cancer Screening Colonoscopy (10 Years) 12/02/2034 12/02/2024 PHQ-2 (Physician [place]) Completed 09/12/2024 Meningococcal B Vaccine Aged Out No l onger eligible based on patient's age to complete this topic Meningococcal Vaccine Aged Out No mya raquel eligible based on patient's age to complete this topic Pneumococcal Vaccine: Pediatrics (0 to 5 Years) and At-Risk Patients (6 to 49 Years) Aged Out No longer eligible b ased on patient's age to complete this topic RSV Immunizations Under 20 Months Aged Out No longer eligible b ased on patient's age to complete this topic Procedures Procedure Name Priority Date/Time Associated Diagnosis Comments PROGESTERONE Routine 01/01/2025 8:20 AM CDT Hot flash not due to menopause LH, LUTEINIZING HORMONE Routine 01/01/2025 8:20 AM CDT Hot flash not due to menopause FSH, FOLLICLE STIM HORMONE Routine 01/01/2025 8:20 AM CDT Hot flash not due to menopause ESTRADIOL Routine 01/01/2025 8:20 AM CDT Hot flash not due to menopause CBC W/DIFF AUTOMATED Routine 01/01/2025 8:19 AM CDT Fatigue, unspecified type THYROXINE, FREE (FT4) Routine 01/01/2025 8:19 AM CDT Fatigue, unspecified type THYROID STIM HORMONE TSH Routine 01/01/2025 8:19 AM CDT Fatigue, unspecified type COLONOSCOPY FLX DX W/COLLJ SPEC WHEN PFRMD 12/02/2024 9:25 AM CDT Screening for colon cancer COLONOSCOPY Routine 12/02/2024 8:25 AM CDT MAMMOGRAM GENERIC (SCAN ORDER) 11/09/2023 from Last 3 Months or Most Recently Relevant to Health Maintenance Results * LH, LUTEINIZING HORMONE (01/01/2025 8:20 AM CDT) LH 6.7 mIU/mL [facility] 1 Comment: Adult Female Range Follicular phase 2.4 - 12.6 Ovulation phase 14.0 - 95.6 Luteal phase 1.0 - 11.4 Postmenopausal 7.7 - 58.5 01/01/2025 8:20 AM CDT 01/01/2025 Narrative [facility] - 01/02/2025 4:07 AM CDT Performed at: 01 - [address] [id number] Progressive Care Manager: Alex Morales PhD, Phone: [phone] Yari Pedraza PA-C LABORATORY Final Resu lt Performing Organization Address [facility] de Phone Number [facility] [address] [place] [address] [facility] * FSH, FOLLICLE STIM HORMONE (01/01/2025 8:20 AM CDT) FSH 6.0 mIU/mL [facility] 1 Comment: Adult Female Range Follicular phase 3.5 - 12.5 Ovulation phase 4.7 - 21.5 Luteal phase 1.7 - 7.7 Postmenopausal 25.8 - 134.8 01/01/2025 8:20 AM CDT 01/01/2025 Narrative [facility] - 01/02/2025 4:07 AM CDT Performed at: [address] [id number] Progressive Care Manager: Alex Morales PhD, Phone: [phone] Yari Pedraza PA-C LABORATORY Final Resu lt Performing Organization Address [facility] de Phone Number [facility] [address] [place] [address] [facility] 1 * ESTRADIOL (01/01/2025 8:20 AM CDT) ESTRADIOL 106.0 pg/mL [facility] 1 Comment: Adult Female Range Follicular phase 12.5 - 166.0 Ovulation phase 85.8 - 498.0 Luteal phase 43.8 - 211.0 Postmenopausal <6.0 - 54.7 1st trimester 215.0 - >4300.0 Makayla ECLIA methodology 01/01/2025 8:20 AM CDT 01/01/2025 Narrative [facility] - 01/02/2025 4:07 AM CDT Performed at: [address] [id number] Progressive Care Manager: Alex Morales PhD, Phone: [phone] Yari Pedraza PA-C LABORATORY Final Resu lt [facility] [address] [place] [address] [facility] 1 * PROGESTERONE (01/01/2025 8:20 AM CDT) Pathologist [facility] PROGESTERONE <0.1 ng/mL [facility] 1 Comment: Follicular phase 0.1 - 0.9 Luteal phase 1.8 - 23.9 Ovulation phase 0.1 - 12.0 First trimester 11.0 - 44.3 Second trimester 25.4 - 83.3 Third trimester 58.7 - 214.0 Postmenopausal 0.0 - 0.1 01/01/2025 8:20 AM CDT 01/01/2025 Narrative [facility] - 01/02/2025 4:07 AM CDT Performed at: [address] [place] [id number] Progressive Care Manager: Alex Morales PhD, Phone: [phone] Yari Pedraza PA-C LABORATORY Final Resu lt Performing Organization Address City/[facility]/ZIP Co de Phone Number [facility] [address] [place] [address] [facility] 1 * CBC W/DIFF AUTOMATED (01/01/2025 8:19 AM CDT) [facility] WBC 7.6 3.4 - 10.8 x10E3/uL [facility] 1 RBC 4.68 3.77 - 5.28 x10E6/uL [facility] 1 HGB 13.4 11.1 - 15.9 g/dL [facility] 1 HCT 41.3 34.0 - 46.6 % [facility] 1 MCV 88 79 - 97 fL [facility] 1 MCH 28.6 26.6 - 33.0 pg [facility] 1 MCHC 32.4 31.5 - 35.7 g/dL [facility] 1 RDW 12.9 11.7 - 15.4 % [facility] 1 PLATELET COUNT 267 150 - 450 x10E3/uL [facility] 1 NEUTROPHILS % 58 Not Estab. % [facility] 1 LYMPHOCYTES % 30 Not Estab. % [facility] 1 MONOCYTES % 9 Not Estab. % [facility] 1 EOSINOPHILS % 2 Not Estab. % [facility] 1 BASOPHILS % 1 Not Estab. % [facility] 1 ABS. NEUTROPHILS 4.4 1.4 - 7.0 x10E3/uL [facility] 1 ABS. LYMPHOCYTES 2.3 0.7 - 3.1 x10E3/uL [facility] 1 MONOCYTES 0.7 0.1 - 0.9 x10E3/uL [facility] 1 ABS. EOSINOPHILS 0.1 0.0 - 0.4 x10E3/uL [facility] 1 ABS. BASOPHILS 0.1 0.0 - 0.2 x10E3/uL [facility] 1 ABS. IMMATURE GRANULOCYTES 0 Not Estab. % [facility] 1 ABS. IMMATURE GRANULOCYTES 0.0 0.0 - 0.1 x10E3/uL [facility] 1 01/01/2025 8:19 AM CDT 01/01/2025 Narrative [facility] - 01/02/2025 3:07 AM CDT Performed at: [address] [id number] Progressive Care Manager: Alex Morales PhD, Phone: [phone] Yari Pedraza PA-C LABORATORY Final Resu lt Performing Organization Address [facility] de Phone Number [facility] [address] [place] [id number] [facility] 1 * THYROXINE, FREE (FT4) (01/01/2025 8:19 AM CDT) Pathologist [facility] FREE T4 1.04 0.82 - 1.77 ng/dL [facility] 1 01/01/2025 8:19 AM CDT 01/01/2025 Narrative [facility] - 01/02/2025 3:07 AM CDT Performed at: [address] [id number] Progressive Care Manager: Alex Morales PhD, Phone: [phone] Yari Pedraza PA-C LABORATORY Final Resu lt Performing Organization Address City/[facility]/ZIP Co de Phone Number [facility] [address] [place] [address] [facility] * THYROID STIM HORMONE TSH (01/01/2025 8:19 AM CDT) TSH 1.470 0.450 - 4.50 uIU/mL [facility] 1 01/01/2025 8:19 AM CDT 01/01/2025 Narrative [facility] - 01/02/2025 3:07 AM CDT Performed at: - [facility] [address] [id number] Progressive Care Manager: Alex Morales PhD, Phone: [phone] Yari Pedraza PA-C LABORATORY Final Resu lt Performing Organization Address [facility] Co de Phone Number [facility] [address] [place] [address] [facility] 1 * MAMMOGRAM GENERIC (SCAN ORDER) (11/09/2023) Anatomical Region Laterality Modality Other 11/09/2023 [facility] Scanned SCANNING Final Resu lt from Last 3 Months or Most Recently Relevant to Health Maintenance Insurance Care Teams Roll Forming Supervisor Relationship Specialty Start Date End Date Yari Pedraza PA-C [address] [place] [address]. [place] [address] PCP - General PHYSICIAN CHARTER COORDINATOR 03/03/21
--- OUTSIDE RECORDS SUMMARY | 2025-02-21 08:20 | XMS_ITS | Clinical Summary ---
Author Organization [facility] [address] Address [address] [place] [address] Care Team Providers Care Reclamation Kettle Tender Name Role Phone Marin Hernandez MD Primary Care Provider +1- [phone] Allergies No known active allergies Medications propranoloL (INDERAL) 40 mg tablet Take 40 mg by mouth daily 02/19/2020 Active Tri-Sprintec, 28, 0.18/0.215/0.25 mg-35 mcg (28) per tablet Take 1 tablet by mouth daily 02/25/2020 Active butalbital-acet aminophen-caffe ine (FIORICET) 50-300-40 mg per capsule TAKE 1 TO 2 CAPSULES BY MOUTH EVERY 4 HOURS NEEDED (MAX 6 CAPSULES PER DAY) 02/21/2019 Active ISOtretinoin (ABSORICA) 20 mg capsule Take 20 mg by mouth 2 (two) times a day Active Active Problems Problem Noted Date Diagnosed Date Chronic rhinitis 03/16/2020 Other headache syndrome 03/16/2020 Surgical History Surgery Date Site/Laterality Comments SINUS SURGERY Medical History Medical History Date Comments Allergic rhinitis Family History Medical History Relation Name Comments Cancer Other Relation Name Status Comments Other Social History Tobacco Use Types Packs/Day Years Used Date Smoking Tobacco: Former Cigarettes Q uit: 2005 Smokeless Tobacco: Never Personal Safety Answer Date Recorded Getting School Help Needed Not on file 09/16 Comments Unknown Sex and Gender Information Value Date Recorded Sex Assigned at Not on file Legal Sex Female 7:13 PM WRAPPER OFF Gender Identity Not on file Sexual Orientation Not on file Obstetrics History Last Filed Vital Signs Vital Sign Reading Time Taken Comments Blood Pressure 119/67 04/10/2018 5:52 PM CDT Pulse 90 04/10/2018 5:52 PM CDT Temperature 36.9 C (98.5 F) 03/25/2020 1:53 PM CDT Respiratory Rate - - Oxygen Saturation 100% 04/10/2018 5:52 PM CDT Inhaled Oxygen Concentration - - Weight 83.9 kg (185 lb) 03/16/2020 10:11 AM CDT Height 182.9 cm (6') 03/16/2020 10:11 AM CDT Body Mass Index 25.09 03/16/2020 10:11 AM CDT Plan of Treatment Not on file Insurance [address] [id number] Care Teams Reclamation Kettle Tender Relationship Specialty Start Date End Date Marin Hernandez MD [address] [place] [phone] PCP - General Family Medicine 03/10/20
--- OUTSIDE RECORDS SUMMARY | 2025-02-21 08:20 | XMS_ITS | Encounter Summary ---
Author Organization [facility] Address [facility] [place] [address] Care Team Providers Care Traveling Freight Agent Name Role Phone Yari Pedraza PA-C Primary Care Provider +1- [phone] Encounter Details Date Type Department Care Team (Late st Contact Info) Description 07/04/2022 Zero Carbon Foodt Message Enc [facility] Family Medicine - [place] [address] Yari Pedraza PA-C [address] [place] [phone] results Social History Tobacco Use Types [...] Coronavirus/COVID-19? No / Unsure 07/01/2022 11:08 AM QUALITY ASSURANCE AUDITOR documented as of this encounter Progress Notes * Roseann Pang MA - 07/05/2022 1:24 PM CST Patient has replied to you (see prev) ITY ASSURANCE AUDITOR documented in this encounter Plan of Treatment Upcoming Encounters Date Type Department Care Team (Late st Contact Info) Description 06/17/2025 3:00 PM QUALITY ASSURANCE AUDITOR Office Visit [facility] Family Medicine - [place] [address] [place] [address] Yari Pedraza PA-C [address] [place] [address] 07/09/2025 8:20 AM QUALITY ASSURANCE AUDITOR Office Visit [facility] Multispecialty Care - [facility] [address] [facility], [address] [place] [address] Caio Harris MD [address] [place] [address] [place] [address] documented as of this encounter Visit Diagnoses Not on filedocumented in this encounter Additional Health Concerns Assessment Noted Time PHQ-9 Depression Total Score: 0 03/03/20 11:44 AM CDT documented as of this encounter Care Teams Traveling Freight Agent Relationship Specialty Start Date End Date Yari Pedraza PA-C [address] [place] [address] PCP - General PHYSICIAN ROTARY KILN OPERATOR 03/03/21 documented as of this encounter
== END 2025-02-21 08:17 | disposition home or self-care (01) ==
LOC: ANHFOHIMG 08:17
PROVIDERS: PCP Physician Assistant; Visit Provider Obstetrics & Gynecology
DX: Z12.31 Encounter for screening mammogram for malignant neoplasm of breast (principal)
CPT/HCPCS: 77063; 77067